=== PATIENT | male | born 1975 | race Caucasian/White ===

== ENCOUNTER 2022-05-11 03:53 | Emergency (ER) | payer OTHER ==
[~2022-05-11] VITALS: Ht 180.3 cm; Wt 95.3 kg
[2022-05-11 03:57] VITALS: BP 148/91
--- NOTE | 2022-05-11 03:57 | NUR ---
pt in bed 8
--- NOTE | 2022-05-11 04:07 | NUR ---
c/o 9/10 epigastric pain that started 11pm last night. pt states 4 episodes of vomiting. per pt, was previously seen [facility] a month ago for gallstones. denies any pmhx, denies any allergies.
--- NOTE | 2022-05-11 04:09 | NUR ---
Dr. Camejo by bedside evaluating patient.
[2022-05-11] MEDS ORDERED: ONDANSETRON 4 MG/2 ML VIAL IVP ONE (04:10)
[2022-05-11] MEDS ORDERED: KETOROLAC 30 MG/ML VIAL IVP ONE (04:10)
--- NOTE | 2022-05-11 04:20 | NUR ---
labs collected and sent to lab
[2022-05-11 04:40] LABS: BASOPHILS # (AUTO) 0.1 K/uL (0.00-0.22); BASOPHILS % (AUTO) 0.4 % (0.0-2.0); EOSINOPHILS % (AUTO) 0.3 % (0.0-4.0); HEMATOCRIT 45.1 % (36-52); HEMOGLOBIN 15.2 g/dL (12.0-18.0); LYMPHOCYTES # (AUTO) 1.1 K/uL (2.0-11.5); MEAN CORPUSCULAR HEMOGLOBIN 30 pg (27-31); MEAN CORPUSCULAR HGB CONC 34 g/dL (33-37); MEAN CORPUSCULAR VOLUME 88.1 fL (80-94); MONOCYTES # (AUTO) 0.6 K/uL (0.8-1.0); NEUTROPHILS # (AUTO) 12.3 K/uL (1.8-7.7); NEUTROPHILS % (AUTO) 87.3 % (42.2-75.2); PLATELET COUNT (AUTO) 254 K/uL (140-450); RED BLOOD CELL COUNT(AUTO) 5.12 MIL/uL (4.20-6.10); RED CELL DISTRIBUTION WIDTH 13.8 % (11.6-13.7); WHITE BLOOD COUNT (AUTO) 14.1 K/uL (4.8-10.8)
[2022-05-11 05:06] LABS: ALBUMIN 4.6 g/dL (3.4-5.0); ANION GAP 13.7 (8-16); CARBON DIOXIDE 26.8 mmol/L (21-32); CREATININE 1.3 mg/dL (0.6-1.3); POTASSIUM 3.5 mmol/L (3.5-5.1); TOTAL BILIRUBIN 0.6 mg/dL (0.0-1.0)
--- NOTE | 2022-05-11 05:29 | NUR ---
Dr. Camejo by bedside
[2022-05-11] MEDS ORDERED: MORPHINE SULFATE 4 MG/ML SYR IVP ONE (05:30)
[2022-05-11] MEDS ORDERED: DICYCLOMINE HCL LIQUID 20 MG, ALUMINUM HYD/MAG/SIMETHICONE 30 ML, LIDOCAINE VISCOUS 2% ... PO ONE ×3 (05:30)
[2022-05-11] MEDS ORDERED: DICYCLOMINE HCL LIQUID 10 MG/5 ML UDC ONE (05:35)
[2022-05-11] MEDS ORDERED: ALUMINUM HYD/MAG/SIMETHICONE 30 ML UDC ONE ×2 (05:35→05:37)
[2022-05-11] MEDS ORDERED: ACET-8905 PO (06:51)
[2022-05-11] MEDS ORDERED: NAPR-54 PO (06:51)
--- NOTE | 2022-05-11 08:00 | NUR ---
RECEIVED PT IN [facility] AOX4. DENIES PAIN AT THIS TIME. PENDING US. NAD. SAFETY MAINTAINED.
[2022-05-11 09:42] VITALS: BP 105/75
--- NOTE | 2022-05-11 10:04 | NUR ---
Patient discharged with v/s stable. Written and verbal after care instructions given and explained. Patient alert, oriented and verbalized understanding of instructions. Ambulatory with steady gait. All questions addressed prior to discharge. ID band removed. Patient advised to follow up with PMD. Rx of NORCO, NAPROXEN given. Patient educated on indication of medication including possible reaction and side effects. Opportunity to ask questions provided and answered.
== END 2022-05-11 10:04 | disposition home or self-care (01) ==
LOC: MED 03:53
DX: K80.20 Calculus of gallbladder without cholecystitis without obstruction (principal); Z79.1 Long term (current) use of non-steroidal anti-inflammatories (NSAID); Z79.891 Long term (current) use of opiate analgesic
CPT/HCPCS: 36415; 76705; 80053; 83690; 85025; 93005; 96374; 96375; 99285; J1885; J2270; J2405; Q0092

== ENCOUNTER 2022-05-13 19:02 | Emergency (ER) | payer OTHER ==
[~2022-05-13] VITALS: Ht 180.3 cm; Wt 93.0 kg
[~2022-05-13 19:02] MED LIST: ACET-8905 PO; NAPR-54 PO
[2022-05-13 19:30] VITALS: BP 131/90
[2022-05-13] MEDS ORDERED: KETOROLAC 60 MG/2 ML VIAL IM ONE (19:40)
[2022-05-13] MEDS ORDERED: OMEP40EC23 PO (19:54)
== END 2022-05-13 20:05 | disposition home or self-care (01) ==
LOC: MED 19:02
DX: R10.13 Epigastric pain (principal); R50.9 Fever, unspecified; Z79.899 Other long term (current) drug therapy
CPT/HCPCS: 99283